=== PATIENT | female | born 1990 | race Asian ===

== ENCOUNTER 2021-12-07 09:37 | Outpatient (CLI) | payer MEDICAID, SELFPAY ==
--- NOTE | ~2021-12-07 | US_ITS ---
EXAMINATION: US OB <=14 wk fetus w TV DATE: 12/07/2021 12:28 INDICATION: Uncertain dating during first trimester of TECHNIQUE: Real-time pelvic ultrasound utilizing both a transvaginal and transabdominal probe was pe rformed. The interpreting radiologist was not present for the study. COMPARISON: None. FINDINGS: The uterus measures 9.5 x 6.3 x 5.6 cm. There is an intrauterine gestational sac. A yolk sac and fet al pole are identified. The crown rump length measures 11.5 mm, which correlates with an estimated ge stational age of 7 weeks and 2 days. heart motion is identified measuring 141 beats per minute (bpm) by M-mode Doppler. Crescentic mixed anechoic and hypoechoic likely subchorionic hematoma along the left inferior margin of the gestational sac which measures 1.7 x 0.7 x 0.5 cm . The right ovary measures 2.5 x 1.2 x 1.3 cm. The left ovary measures 2.6 x 2.4 x 1.9 cm. 1.2 cm anech oic left ovarian cyst/follicle. 1.3 similar isoechoic likely corpus luteum cyst in the right ovary. T here is trace amount of free fluid in the cul-de-sac. IMPRESSION: 1. Single living fetus with heart rate of 141 bpm. 2. Gestational age by ultrasound of 7 weeks 2 day(s) +/- 5 day(s) with ultrasound estimated date of delivery ([facility]) of 07/24/2022. 3. Small subchorionic hematoma. Reviewed, dictated and finalized at location B. IMPRESSION: 1. Single living fetus with heart rate of 141 bpm. 2. Gestational age by ultrasound of 7 weeks 2 day(s) +/- 5 day(s) with ultraso und estimated date of delivery ([facility]) of 07/24/2022. 3. Small subchorionic hematoma.
== END 2021-12-07 09:38 | disposition home or self-care (01) ==
LOC: ANHIMG 09:42
PROVIDERS: PCP Internal Medicine; Visit Provider Internal Medicine
DX: Z34.91 Encounter for supervision of normal pregnancy, unspecified, first trimester (principal); Z3A.01 Less than 8 weeks gestation of pregnancy
CPT/HCPCS: 76801; 76817

== ENCOUNTER 2022-07-13 20:23 | Observation (INO) | payer OTHER, SELFPAY ==
[2022-07-13 22:23] VITALS: BMI 25.0
--- NOTE | 2022-07-13 22:24 | OBADM ---
This patient, Nella Gloria, admitted to the OB room Labor/Delivery/Recovery 106 for observation. Patient/family oriented to hospital policies and general routines including ID bracelet, bed and alarms, visiting hours, pain management, procedures, bathroom and other care routines, personal items, smoking policy, room service/diet, and visiting hours. Patient/Family are encouraged to report perceived risks to care and to ask questions if they do not understand what they are told or what they should do.
--- NOTE | 2022-08-09 00:50 | PM.OBTRLD ---
OB - Triage/Final Diagnosis Visit Information Comments/Additional reasons for admission: I have assessed the risk for this patient, Nella Gloria, and determined that she would benefit from observation care. Final Diagnosis (1) False labor: Code(s): O47.9 - False labor, unspecified Status: Acute
== END 2022-07-13 22:51 | disposition home or self-care (01) ==
PROVIDERS: Admitting Provider Obstetrics & Gynecology; PCP Internal Medicine; Visit Provider Obstetrics & Gynecology
DX: O47.1 False labor at or after 37 completed weeks of gestation (principal); Z3A.38 38 weeks gestation of pregnancy
CPT/HCPCS: G0378; G0379

== ENCOUNTER 2022-07-19 16:56 | Inpatient (IN) | payer OTHER, SELFPAY ==
[2022-07-19] VITALS (15 sets, daily range): BP systolic 105–206; BP diastolic 68–174; PULSE 72–88; RESP 16; TEMP 36.4; BMI 25.4
--- NOTE | 2022-07-19 17:25 | LDADM ---
This patient, Nella Gloria, was admitted to Labor/Delivery/Recovery 108 on 07/19/22 at 16:56. Plans for labor, pain management and were discussed with patient. Patient/family oriented to hospital policies and general routines including ID bracelet, bed and alarms, visiting hours, pain management, procedures, bathroom and other care routines, personal items, smoking policy, room service/diet and guest tray routines, infant security routines, and visiting hours. Patient/Family are encouraged to report perceived risks to care and to ask questions if they do not understand what they are told or what they should do. See OBIX for further documentation.
[2022-07-19 17:41] LABS: Basophils Percent Auto 0.4 % (0.2-1.2); Eosinophils Absolute Auto 0.1 K/mm3 (0-0.3); Eosinophils Percent Auto 1.8 % (0-4.4); Hematocrit 40.3 % (37.0-47.0); Hemoglobin 13.8 g/dL (12.0-15.0); Immature Granulocyte Absolute 0.04 K/mm3 (0.00-0.031); Immature Granulocyte Percent A 0.6 % (0-0.5); Lymphocytes Absolute Auto 1.38 K/mm3 (0.9-3.2); Lymphocytes Percent Auto 20.3 % (18.3-44.2); Mean Corpuscular HGB Conc 34.2 g/dl (32-36); Mean Corpuscular Hemoglobin 31.9 pg (26-34); Mean Corpuscular Volume 93.1 fl (80-100); Mean Platelet Volume 10.5 fl (7.4-10.4); Monocytes Absolute Auto 0.7 K/mm3 (0.1-0.6); Monocytes Percent Auto 9.8 % (2.6-8.5); Neutrophils Absolute Auto 4.6 K/mm3 (1.3-6.7); Neutrophils Percent Auto 67.1 % (45.5-73.1); Platelet Count Result 218 k/mm3 (150-375); Red Blood Count 4.33 M/mm3 (4.2-5.4); Red Cell Distribution Width 14.1 % (11.5-14.5); White Blood Count 6.8 K/mm3 (4.5-10.0)
[2022-07-19] MEDS: DINOPROSTONE 10 MG VAG INSERT VAGINAL (17:57)
--- NOTE | 2022-07-19 18:27 | PC.NURSE ---
report given to Sherry, RN
[2022-07-19] MEDS: ACETAMINOPHEN 500 MG TABLET 1000 MG PO (21:42)
[2022-07-19] MEDS: LACTATED RINGERS 1,000 ML 125 ML IV CONT (23:00)
--- NOTE | 2022-07-19 23:33 | WPDANESEPP ---
Anes - Eval Pre Procedure Procedure: Labor epidural Date/Time: 07/19/22 23:33 Preop Diagnosis: Abdominal pain with contractions Pre Op Diagnosis: IOL Patient Data Age: 32 Gender: F Height: 1.6 m Weight: 65 kg Last Vital Signs Temp 97.6 F 07/19/22 21:46 Pulse 82 07/19/22 20:34 Resp 16 07/19/22 17:35 BP 117/72 07/19/22 20:34 O2 Del Method Room Air 07/19/22 17:18 Allergies Allergy/AdvReac Type Severity Reaction Status Date / Time No Known Allergies Allergy Verified 07/13/22 22:38 Home Medications Medication Instructions Recorded Confirmed Type vit no.95-ferrous 1 tablet PO DAILY 07/19/22 07/19/22 History fumarate 28 mg-folic acid 800 mcg tablet () Laboratory Tests 07/19/22 07/19/22 07/19/22 17:27 17:27 17:27 WBC 6.8 K/mm3 K/mm3 (4.5-10.0) RBC 4.33 M/mm3 M/mm3 (4.2-5.4) Hgb 13.8 g/dL g/dL (12.0-15.0) Hct 40.3 % % (37.0-47.0) MCV 93.1 fl fl (80-100) MCH 31.9 pg pg (26-34) MCHC 34.2 g/dl g/dl (32-36) RDW 14.1 % % (11.5-14.5) Plt Count 218 k/mm3 k/mm3 (150-375) MPV 10.5 fl H fl (7.4-10.4) Immature Gran % (Auto) 0.6 % H % (0-0.5) Neut % (Auto) 67.1 % % (45.5-73.1) Lymph % (Auto) 20.3 % % (18.3-44.2) [place] % (Auto) 9.8 % H % (2.6-8.5) Eos % (Auto) 1.8 % % (0-4.4) Baso % (Auto) 0.4 % % (0.2-1.2) Lymph # (Auto) 1.38 K/mm3 K/mm3 (0.9-3.2) [place] # (Auto) 0.7 K/mm3 H K/mm3 (0.1-0.6) Eos # (Auto) 0.1 K/mm3 K/mm3 (0-0.3) Baso # (Auto) 0.0 K/mm3 K/mm3 (0.0-0.1) Abs Immat Gran (auto) 0.04 K/mm3 H K/mm3 (0.00-0.031) Absolute Neuts (auto) 4.6 K/mm3 K/mm3 (1.3-6.7) Absolute Nucleated RBC 0.0 K/mm3 K/mm3 (0.0-0.012) Nucleated RBC % 0.0 % % (0.0-0.2) RPR Pending Blood Type AB Positive Antibody Screen Negative : gestational age HCG: positive Patient hx anesthesia problems: none Family hx anesthesia problems: none Results Review: All pre-operative results and documents have been reviewed as part of the pre-operative evaluation. [facility] Past Medical History Medical History Overweight (BMI 25.0-29.9) and not yet delivered Family History Family History Other No pertinent family history Social History Social History Smoking status: Never smoker Substance use: never Lack of Transportation: No Lack of Food: Never True Current Housing: I Have Housing Concerned About Future Housing: No Difficulty Paying Gas/Electric Bills: No Difficulty Paying for Meds: No Currently Unemployed: No Education: Bachelor's Degree Difficulty w/ Childcare or Family Care: No Spiritual care concerns: No Exam Day of Procedure 07/19/22 23:33 Patient weight: overweight Airway: Mallampati scale class II
[2022-07-20] VITALS (149 sets, daily range): BP systolic 70–195; BP diastolic 35–141; PULSE 53–175; RESP 16–18; TEMP 36.1–37.2; O2SAT 88–100
[2022-07-20] MEDS: OXYTOCIN 30 UNITS/NS 500 ML 30 UNITS/500 ML BAG 6 UNITS IV CONT (03:42)
[2022-07-20] MEDS: ACETAMINOPHEN 500 MG TABLET 1000 MG PO (04:31)
[2022-07-20] MEDS: LACTATED RINGERS 1,000 ML 125 ML IV CONT ×2 (05:21→06:53)
--- NOTE | 2022-07-20 07:15 | WPDOBADMIT ---
Obstetrics - Admit Note Admission Note: record reviewed. Additions to the history and/or subsequent changes in the physical findings follow. 32 y/o G1 at 39 2/7 weeks here for induction of labor. Cervidil last night, has been withdrawn. Now comfortable with epidural. GBS neg. Had episode of tachysystole and associated FHR deceleration, but this responded well to the usual measures. AVSS NST reactive TOCO: irregular contractions ABD soft, nontender, gravid, vertex EXT nontender Cervix 5/80/-2. AROM with clear fluid. IUPC placed. A: IUP at term, desiring induction of labor. P: Oxytocin. Anticipate .
--- NOTE | 2022-07-20 08:15 | PC.NURSE ---
Report given to Patrick Crenshaw on pt tracing including late decelerations, variables, and prolonged late deceleration. Orders for an amnio infusion.
[2022-07-20] MEDS: SODIUM CHLORIDE 0.9% IV 300 ML 600 ML I-UTERINE (08:25)
[2022-07-20] MEDS: ONDANSETRON INJ 4 MG/2 ML VIAL IV PUSH (11:47)
--- NOTE | 2022-07-20 13:23 | P.PCNOB_ITS ---
OB - Delivery Note Procedure Delivery date: 07/20/22 Procedure: Induction of labor with Induction method: Per Cervidil Protocol Delivery augmentation: Rupture of Membranes Delivery monitor: External FHT, External Uterine and Internal Uterine Route of delivery: Laceration Description: Perineal - 2nd Degree Delivery repair: vicryl (3-0) Specimen: Yes (cord blood) Quantitative Blood Loss (ml): 420 Anesthesia type: Epidural Disposition: PACU Complications: None Narrative: 32 y/o G1 at 39 2/7 weeks gestation who presented to the hospital for induction of labor. Cervidil was placed overnight. The following morning, it was withdrawn and oxytocin was administered intravenously. Amniotomy was performed with return of clear fluid. She received an epidural for pain control. Her labor progressed and her cervix dilated completely. She pushed with good effort and delivered the infant's head to the perineum, followed by the body. The nose and mouth were bulb suctioned. After a delay, the cord was clamped and cut. The was handed off the field. Cord blood was collected. The placenta delivered spontaneously and was grossly normal in appearance. The usual 3 vessel cord was noted. A second degree midline perineal laceration was sustained. This was reapproximated using 3 0 Vicryl in the usual layered fashion. Excellent hemostasis resulted as did excellent reapproximation of the normal anatomy. Needle and instrument counts were correct. The patient was taken to recovery room in stable condition. The went to the nursery in stable condition. I was present and scrubbed for the entire delivery. [place] Baby Date of : 07/20/22 Time of : 12:58 Weeks of gestation at delivery: 39 Infant gender: Male Weight (pounds): 6 Weight (ounces): 11 presentation: vertex position: Right Occiput Anterior Placenta delivery description: Spontaneous and Normal Configuration Cord Vessel Description: 3 Vessels and Delayed Cord Clamping score one minute: 9 score five minutes: 9
[2022-07-20 13:35] LABS: Rapid Plasma Reagin Non-Reactive (NonReactive)
--- NOTE | 2022-07-20 14:27 | PM.OBDSVD ---
DS: Admitting Diagnosis Discharge Date 07/22/22 Admitting Diagnosis IUP at 39 2/7 weeks DS: Discharge Diagnosis Discharge Diagnosis (1) (normal spontaneous vaginal delivery): Code(s): O80 - Encounter for full-term uncomplicated delivery Status: Acute OB - DS: Summary OB Procedures : None OB Procedures Intrapartum: Spontaneous Vag Delivery OB Procedures: : None Time Spent with Patient Time attestation: Total time spent providing and/or coordinating discharge services: DS: Data Data Completed and Pending Labs on day of discharge: Labs from last 24 hours 07/19/22 07/19/22 07/19/22 17:27 17:27 17:27 WBC 6.8 RBC 4.33 Hgb 13.8 Hct 40.3 MCV 93.1 MCH 31.9 MCHC 34.2 RDW 14.1 Plt Count 218 MPV 10.5 H Immature Gran % (Auto) 0.6 H Neut % (Auto) 67.1 Lymph % (Auto) 20.3 [place] % (Auto) 9.8 H Eos % (Auto) 1.8 Baso % (Auto) 0.4 Lymph # (Auto) 1.38 [place] # (Auto) 0.7 H Eos # (Auto) 0.1 Baso # (Auto) 0.0 Abs Immat Gran (auto) 0.04 H Absolute Neuts (auto) 4.6 Absolute Nucleated RBC 0.0 Nucleated RBC % 0.0 RPR Non-reactive Blood Type AB Positive Antibody Screen Negative Discharge Plan Discharge Attending physician on discharge: Cooper Crenshaw Consulting providers: Freddie Lilly ; Hayley Blake Discharging Clinician: Cooper Crenshaw Patient Disposition: Home, Self-Care Activity: pelvic rest Diet: regular Discharge Instructions: Call or return if temperature above 100.4? F, increased abdominal pain, increased vaginal bleeding or any new problems. Education: Mom and Baby Guide Given to: Mother Follow-Up: Call your delivering provider's office for an appointment to be seen in: 6 Weeks Mom and baby should come to the [facility] for the follow-up appointment. Appointment Date/Time: July 24, 2022 at 2:30 pm What to expect at your follow-up visit: Physical Assessment Call [phone] if you are unable to keep your appointment time. BREAST CARE: * Wear a snug supportive bra. * For engorgement discomfort: Bottle Feeding: * May apply ice packs EPISIOTOMY/PERINEAL CARE: * Until bleeding stops, use your madeline bottle after urinating * Change your pad frequently throughout the day * You may take sitz baths several times a day (fill your bathtub with warm water and soak for 20 minutes.) Do NOT bathe in the water * No tub baths until seen by your physician - You may shower ACTIVITY: * Rest as much as possible. * Do not exercise or lift anything heavier than your baby (such as laundry or other children.) * Avoid stairs or driving as much as possible. * Do not put anything into the vagina. No douching, tampons, or sexual activity until seen by physician. NOTIFY PHYSICIAN IF YOU HAVE ANY QUESTIONS OR IF ANY OF THE FOLLOWING SYMPTOMS OCCUR: * If your episiotomy or incision becomes red, swollen, or more painful than what you have experienced in the hospital. * If your vaginal bleeding becomes foul smelling. * If your vaginal bleeding becomes more heavy than a period or if your bleeding changes from pink to bright red. However, you may pass an occasional walnut-sized clot once or twice for the first week . * If you experience a sharp, shooting pain in you calves. * If you discover a hard, reddened area on your breast or if you experience flu-like symptoms. DIET: * Eat regular, well-balanced meals. * Drink plenty of fluids daily. If , drink to thirst. Stand Alone Forms: General Discharge Information Follow-up/Referrals: Cooper Crenshaw MD [Physician] - 6 Weeks Discharge Medications: New ibuprofen 600 mg tablet 600 mg PO Q6H PRN (Reason: cramps) Qty: 30 0RF Continued PNV cmb#95-ferrous fumarate-FA [] 28 mg iron- 800 mcg Tablet 1 tablet PO DAILY Date of admission: 1
[2022-07-20] MEDS: IBUPROFEN 600 MG TABLET PO ×2 (14:55→20:31)
[2022-07-20] MEDS: BENZOCAINE 20% AER SPR (*SP) 56 GM CAN 1 SPRAY TOPICAL (14:55)
[2022-07-20] MEDS: WITCH HAZEL 40 PADS 1 PAD TOPICAL (14:55)
--- NOTE | 2022-07-20 16:00 | PC.NURSE ---
Report given to Sapna Mayo RN
--- NOTE | 2022-07-20 16:05 | OBPPTRN ---
Patient transferred to post room #287 via wheelchair. Support person present. Oriented to unit, room, information board, rooming in, admission packet and security measures. Patient verbalizes understanding.
[2022-07-20] MEDS: DOCUSATE SODIUM 100 MG CAPSULE PO (21:20)
[2022-07-21] MEDS: ACETAMINOPHEN 325 MG TABLET 650 MG PO (01:28)
[2022-07-21 06:13] LABS: Hematocrit 30.1 % (37.0-47.0)
--- NOTE | 2022-07-21 07:20 | PM.OBPNVD ---
OB - PN: Subj Subjective Date/time seen: 07/21/22 07:20 Patient comments: no complaints and pain well controlled baby status: doing well OB - PN: Obj Data Labs CBC & Chem 7: 07/21/22 04:55 Labs: Laboratory Results - last 24 hr 07/19/22 07/21/22 17:27 04:55 Hgb 10.0 L D Hct 30.1 L RPR Non-reactive OB - PN A/P Plan day: 1 Plan: routine care Time Spent With Patient Time: Total time spent is greater than 50% in coordination of care (as documented) at patient's floor/unit and/or counseling patient: Time with patient: less than 15 minutes Exam Const: General: cooperative, healthy appearing and comfortable Nutritional Appearance: average body habitus Orientation/consciousness: oriented to person, oriented to place and oriented to time Resp: Effort & Inspection: normal respiratory effort GI: Inspection: normal to inspection (fundus firm below umbilicus)
--- NOTE | 2022-07-21 07:48 | WPDANLDPN2 ---
Anes-Prog Note L&D Date/Time: 07/21/22 07:48 Comfortable throughout: labor and delivery Neuraxial method: epidural Epidural/Spinal procedure site: clean & non-tender Neuro status: Neuro function grossly intact. Cardiovascular status: normal Respiratory status: normal Airway patency: baseline Mental status: baseline Post-Op hydration status: normal Vital Signs: Last Vital Signs Temp 36.8 C 07/20/22 20:05 Pulse 107 H 07/20/22 20:05 Resp 16 07/20/22 20:05 BP 120/77 07/20/22 20:05 Pulse Ox 100 07/20/22 16:05 O2 Del Method Room Air 07/20/22 16:05 Pain score (VAS): 09/12 I/O: Intake & Output 07/20/22 07/20/22 07/21/22 15:59 23:59 07:59 Intake Total 500 Output Total 455 Balance -455 500 Post-procedural complaints: none Patient feedback: Patient satisfied with anesthetic care.
[2022-07-21 08:15] VITALS: BP 97/57; PULSE 82; RESP 18; TEMP 37.6; O2SAT 99
[2022-07-21] MEDS: IBUPROFEN 600 MG TABLET PO ×2 (09:16→17:23)
[2022-07-21] MEDS: POLYSACCHARIDE IRON COMPLEX 150 MG CAPSULE PO ×2 (09:16→17:22)
[2022-07-21] MEDS: MULTIVIT/MIN/PREN/FOL AC/IRON TABLET 1 TAB PO (09:16)
[2022-07-21] MEDS: DOCUSATE SODIUM 100 MG CAPSULE PO (17:22)
[2022-07-21 18:45] VITALS: BP 98/74; PULSE 85; RESP 16; TEMP 36.7
--- NOTE | 2022-07-22 07:22 | P.PNOB_ITS ---
OB - PN: Subj Subjective Date/time seen: 07/22/22 07:22 Patient comments: no complaints and pain well controlled baby status: doing well OB - PN: Obj Data Labs CBC & Chem 7: 07/21/22 04:55 OB - PN A/P Plan day: 2 Plan: routine care, discharge home and follow up 6 weeks Time Spent With Patient Time: Total time spent is greater than 50% in coordination of care (as documented) at patient's floor/unit and/or counseling patient: Time with patient: less than 15 minutes Exam 2 Const: General: cooperative, healthy appearing and comfortable Nutritional Appearance: average body habitus Orientation/consciousness: oriented to person, oriented to place and oriented to time HENMT: Head: normal to inspection Resp: Effort & Inspection: normal respiratory effort GI: Inspection: normal to inspection (Fundus firm below the umbilicus)
[2022-07-22 08:00] VITALS: BP 111/73; PULSE 87; RESP 20; TEMP 36.6; O2SAT 100
[2022-07-22] MEDS: IBUPROFEN 600 MG TABLET PO (08:26)
[2022-07-22] MEDS: DOCUSATE SODIUM 100 MG CAPSULE PO (08:26)
[2022-07-22] MEDS: MULTIVIT/MIN/PREN/FOL AC/IRON TABLET 1 TAB PO (08:26)
--- NOTE | 2022-07-22 12:50 | PC.NURSE ---
Patient viewed the discharge video Mother & Baby Care, The First Two Weeks . Patient was given the opportunity and encouraged to ask questions. Patient verbalized understanding of information shared and has been given the mother/baby guide for home reference.
[2022-07-24 14:12] VITALS: BP 106/65; PULSE 84; RESP 16; TEMP 36.6; O2SAT 99
== END 2022-07-22 13:05 | disposition home or self-care (01) | DRG 560 ==
LOC: ANHLDR 07-20 13:21 → ANHOB2 07-22 12:22 → ANHLDR 07-26 08:25 → ANHOB2 07-26 08:25
PROVIDERS: Admitting Provider Obstetrics & Gynecology; PCP Internal Medicine; Visit Provider Obstetrics & Gynecology
DX: O76 Abnormality in fetal heart rate and rhythm complicating labor and delivery (principal); O70.1 Second degree perineal laceration during delivery; Z3A.39 39 weeks gestation of pregnancy; Z37.0 Single live birth; Z23 Encounter for immunization
CPT/HCPCS: 36415; 85014; 85018; 85025; 86592; 86850; 86900; 86901; 90471; 90686; A9270; G0008; J2405; J2590; J2795; J7030; J7120